=== PATIENT | female | born 1970 | race Caucasian/White ===

== ENCOUNTER 2017-03-16 14:19 | Emergency (ER) | payer OTHER ==
[~2017-03-16] VITALS: Ht 165.1 cm; Wt 52.0 kg
[~2017-03-16 14:19] MED LIST: MMW SWISH-SPIT; PRED20 PO
[2017-03-16] MEDS ORDERED: ONDANSETRON HCL 4 MG/2 ML VIAL IV PUSH ONE (14:30)
[2017-03-16] MEDS ORDERED: MORPHINE SULFATE 4 MG/ML INJ IV PUSH ONE (14:30)
[2017-03-16 14:33] VITALS: BP 115/75; PULSE 97; RESP 18; TEMP 99; O2SAT 99
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
[2017-03-16] MEDS ORDERED: NORC5TAB PO (15:27)
[2017-03-16] MEDS ORDERED: CYCL1TAB29 PO (15:27)
== END 2017-03-16 16:13 | disposition home or self-care (01) ==
LOC: NEPC 14:19
DX: S00.03XA Contusion of scalp, initial encounter (principal); S46.912A Strain of unspecified muscle, fascia and tendon at shoulder and upper arm level, left arm, initial encounter; S29.012A Strain of muscle and tendon of back wall of thorax, initial encounter; V43.52XA Car driver injured in collision with other type car in traffic accident, initial encounter; Y93.89 Activity, other specified; Y92.410 Unspecified street and highway as the place of occurrence of the external cause; Y99.8 Other external cause status
CPT/HCPCS: 70450; 71250; 72125; 73030; 96374; 96375; 99284; J2270; J2405